=== PATIENT | male | born 1950 | race Caucasian/White ===

== ENCOUNTER → 2019-09-20 | Outpatient (CLI) | payer OTHER | LOC: M.LAB 10:16 | DX: Z20.828 Contact with and (suspected) exposure to other viral communicable diseases (principal) ==

== ENCOUNTER → 2019-10-09 | Outpatient (CLI) | payer OTHER, MEDICARE | LOC: M.CT 13:59 | DX: I25.10 Atherosclerotic heart disease of native coronary artery without angina pectoris (principal); J43.8 Other emphysema ==

== ENCOUNTER → 2019-10-15 | Outpatient (CLI) | payer OTHER, MEDICARE ==
--- NOTE | 2019-10-15 16:11 | 2DMMODE ---
[place] [address] 2 D/M-MODE ECHOCARDIOGRAM Name: JOSÉ CAMACHO MD Room: [facility]#: [id number] Admission: 10/15/19 Attend Phys: Deny Dorsey, Discharge: Date of : 54 Date of Service: 10/15/19 1609 Report #: [id number] THIS REPORT FOR: cc: Idris Claudio MD, William MD Holkins,Deon Shah MD [facility] ~ APPROVED REPORT Study performed: 10/15/2019 14:46:30 EXAM: Comprehensive 2D, Doppler, and color-flow Echocardiogram Patient Location: Out-Patient Status: routine BSA: 2.20 HR: 71 bpm Rhythm: NSR Other Information Study Quality: Good Indications Chest Pain 2D Dimensions IVSd: 12.00 (7-11mm) LVOT Diam: 19.90 (18-24mm) LVDd: 51.34 mm PWd: 9.92 (7-11mm) Ascending Ao: 33.98 (22-36mm) LVDs: 27.39 (25-40mm) Aortic Root: 43.81 mm Volumes Left Atrial Volume (Systole) LA ESV Index: 22.50 mL/m2 Aortic Valve AoV Peak Juan.: 1.10 m/s AO Peak Gr.: 4.82 mmHg LVOT Max P.34 mmHg AO Mean Gr.: 2.86 mmHg LVOT Mean P.21 mmHg LVOT Max V: 1.04 m/s AO V2 VTI: 20.29 cm LVOT Mean V: 0.69 m/s NEDA (VTI): 3.15 cm2 LVOT V1 VTI: 20.53 [place] [address] 2 D/M-MODE ECHOCARDIOGRAM Name: JOSÉ CAMACHO MD Room: [facility]#: [id number] Admission: 10/15/19 Attend Phys: Deny Dorsey, Discharge: Date of : 54 Date of Service: 10/15/19 1609 Report #: [id number] Mitral Valve E/A Ratio: 1.07 MV Decel. Time: 267.28 ms MV E Max Juan.: 0.51 m/s MV PHT: 77.51 ms MVA (PHT): 2.84 cm2 TDI E/Lateral E': 3.64 E/Medial E': 6.38 Medial E' Juan.: 0.08 m/s Lateral E' Juan.: 0.14 m/s Pulmonary Valve PV Peak Juan.: 0.82 m/s PV Peak Gr.: 2.68 mmHg Left Ventricle The left ventricle is normal size. There is normal LV segmental wall motion. There is normal left ventricular wall thickness. Left ventricular systolic function is normal. The left ventricular ejection fraction is within the normal range. LVEF is 60%. Grade I - abnormal relaxation pattern. Right Ventricle The right ventricle is normal size. The right ventricular systolic function is normal. Atria The left atrium size is normal. The right atrium size is normal. Aortic Valve Mild aortic valve sclerosis. Trace aortic regurgitation. There is no aortic valvular stenosis. Mitral Valve The mitral valve is normal in structure. Trace mitral regurgitation. No evidence of mitral valve stenosis. Tricuspid Valve The tricuspid valve is normal in structure. Unable to assess PA pressure. Trace tricuspid regurgitation. Pulmonic Valve The pulmonary valve is normal in structure. [place] [address] 2 D/M-MODE ECHOCARDIOGRAM Name: JOSÉ CAMACHO MD Room: [facility]#: [id number] Admission: 10/15/19 Attend Phys: Deny Dorsey, Discharge: Date of : 54 Date of Service: 10/15/19 1609 Report #: [id number] Great Vessels Aortic root is mildly dilated. IVC is normal in size and collapses >50% with inspiration. Pericardium There is no pericardial effusion. <Conclusion> The left ventricle is normal size. There is normal left ventricular wall thickness. Left ventricular systolic function is normal. The left ventricular ejection fraction is within the normal range. LVEF is 60%. Grade I - abnormal relaxation pattern. The right ventricle is normal size. Mild aortic valve sclerosis. Trace aortic regurgitation. There is no aortic valvular stenosis. The mitral valve is normal in structure. Trace mitral regurgitation. The tricuspid valve is normal in structure. Aortic root is mildly dilated. IVC is normal in size and collapses >50% with inspiration. There is no pericardial effusion. There is normal LV segmental wall motion. <ELECTRONICALLY SIGNED> By: Deon Adames MD, [facility] 10/15/19 1609 1609 [id number] Deon Adames MD, FACC /INF
== END ==
LOC: M.CRD 14:45
DX: I35.1 Nonrheumatic aortic (valve) insufficiency (principal); I25.10 Atherosclerotic heart disease of native coronary artery without angina pectoris

== ENCOUNTER → 2019-10-18 | Outpatient (CLI) | payer OTHER, MEDICARE ==
[2019-10-18 09:53] LABS: CHOLESTEROL 189 mg/dL (<200); HDL CHOLESTEROL 74 mg/dL (>40); TC:HDL 2.6 Ratio (Not establshd)
[2019-10-18 14:18] LABS: LDL CHOLESTEROL 105 mg/dL (<100); TRIGLYCERIDE 51 mg/dL (<150); VLDL 10 mg/dL (<40)
[2019-10-18 14:19] LABS: SERUM ASSESSMENT Clear
== END ==
LOC: M.CRD 10-14 10:16 → M.NUC 09:23
PROVIDERS: Internal Medicine Cardiovascular Disease
DX: I25.10 Atherosclerotic heart disease of native coronary artery without angina pectoris (principal); R07.2 Precordial pain

== ENCOUNTER → 2019-10-29 | Outpatient (CLI) | payer OTHER, MEDICARE ==
--- NOTE | 2019-10-29 16:33 | CARDNUC ---
[place] [address] CARDIAC NUCLEAR IMAGING REPORT Name: JOSÉ CAMACHO MD Room: [facility]#: [id number] Admission: 10/29/19 Attend Phys: Deny Dorsey, Discharge: Date of : 54 Date of Service: 10/29/19 1631 Report #: [id number] THIS REPORT FOR: cc: Idris Claudio MD, William MD Liston,Deny Terrell MD [facility] ~ APPROVED REPORT Imaging Protocol: Stress Tc-99m/Rest Tc-99m 2 days Study performed: 10/29/2019 09:30:00 Indication: Chest pain, dyspnea, increased calcium score. Patient Location: Out-Patient Stress Tech: Joanne Dhaliwal Stress Nurse: Cordelia Mathew RN Ht: 6 ft 0 in Wt: 215 lbs BSA: 2.20 m2 BMI: 29.15 Medical History Medical History: Angina, CAD non obstructive, HTN. Medications: Amlodipine, Olmesartan, ASA 81 Mg. Allergies: Naproxen, Ibuprofen. Cardiac Risk Factors: Age, HTN, Dyspnea, increase calcium score, chest discomfort. Previous Cardiac Procedures: None Pretest Chest Pain Characteristics: No chest pain Exercise History: Physically active Physical Disabilities: None noted. Meds Held (24 hrs): None Resting Data Rest SPECT myocardial perfusion imaging was performed in supine position 30 minutes following the intravenous injection of 10.5 mCi of Tc-99m Sestamibi. Time of rest injection: 09:55 The images were gated to evaluate regional wall motion and calculate left ventricular ejection fraction. Administration Route: IV Administration Site: Right Hand Exercise Stress At peak stress, the patient was injected intravenously with 34.3mCi of Tc-99[place] [address] CARDIAC NUCLEAR IMAGING REPORT Name: JOSÉ CAMACHO MD Room: [facility]#: [id number] Admission: 10/29/19 Attend Phys: Deny Dorsey, Discharge: Date of : 54 Date of Service: 10/29/19 1631 Report #: [id number] Time of stress injection: 11:45 Administration Route: IV Administration Site: Right Hand Heart Rate at time of stress injection: 154 bpm. Patient continued to exercise for 1 minute(s). Gated Stress SPECT was performed 30 minutes after stress injection. The images were gated to evaluate regional wall motion and calculate left ventricular ejection fraction. Prone imaging was performed. Stress Test Details Stress Test: Exercise stress testing was performed using a Liam protocol. HR Max Heart Rate (APMHR): 153 bpm Resting HR: 67 bpm Target HR (85% APMHR): 130 bpm Max HR Achieved: 154 bpm % of APMHR: 100 Recovery HR: 98 bpm HR response to stress: Normal HR response to stress BP Resting BP: 135/96 mmHg Max BP: 216/86 mmHg Recovery BP: 164/91 mmHg BP response to stress: Abnormal hypertensive response to stress. ECG Resting ECG: Sinus Rhythm Stress ECG: Sinus Tachycardia ST Change: None Arrhythmia: None Recovery ECG: Sinus Rhythm Recovery ST Change: None Recovery Arrhythmia: None Clinical Reason for Termination: Completed protocol, Maximal effort. Stress Symptoms: Left side underarm area ache - -/10. Exercise duration: 9 min 44 sec Exercise capacity: 11.36 METs Overall Exercise Capacity for Age: Superior. Patient exhibited good exercise tolerance on the standard Liam protocol. At peak exercise he did note some ache on the left side under his arm and his chest. [place] [address] CARDIAC NUCLEAR IMAGING REPORT Name: JOSÉ CAMACHO MD Room: [facility]#: [id number] Admission: 10/29/19 Attend Phys: Deny Dorsey, Discharge: Date of : 54 Date of Service: 10/29/19 1631 Report #: [id number] recovery. Nurse Comments A 69 year old male presented for a Liam Protocol Nuclear Stress test r/t increased calcium score, chest discomfort, dyspnea. Treadmill well tolerated to Stage 4. Recovery unremarkable. Patient was escorted by staff to Nuclear Medicine for imaging. Patient was stable and stated he felt good at that time. Exercise Capacity - Superior. Stress ECG Conclusion The baseline twelve-lead EKG shows sinus rhythm without significant ST segment or T wave abnormality. EKGs obtained during and post exercise show sinus rhythm and sinus tachycardia with no significant ST segment or T wave changes when compared to baseline. There were no stress-induced arrhythmias. Study Quality Study: Good Artifact: No artifact Study Data At rest, the left ventricular ejection fraction was 64%.. Post stress, the left ventricular ejection was 79%.. TID = 0.82. Perfusion Perfusion images obtained at rest and post exercise stress showed uniform uptake of the radioisotope throughout the myocardium without defect. Wall Motion Normal left ventricular wall motion. Nuclear Conclusion ECG Findings: negative for ischemia Clinical Findings: equivocal Nuclear Findings: negative for ischemia Exercise Capacity: normal Left Ventricular Function: normal Risk Study: low Perfusion study showed no defect to suggest infarct or ischemia. Left ventricular systolic function appears normal on gated studies. Stress EKG was unremarkable. This is a low risk study. <Conclusion> [place] [address] CARDIAC NUCLEAR IMAGING REPORT Name: JOSÉ CAMACHO MD Room: [facility]#: [id number] Admission: 10/29/19 Attend Phys: Deny Dorsey, Discharge: Date of : 54 Date of Service: 10/29/19 1631 Report #: [id number] The baseline twelve-lead EKG shows sinus rhythm without significant ST segment or T wave abnormality. EKGs obtained during and post exercise show sinus rhythm and sinus tachycardia with no significant ST segment or T wave changes when compared to baseline. There were no stress-induced arrhythmias. <ELECTRONICALLY SIGNED> By: Deny Dorsey MD, FACC 10/29/19 [id number] Deny Dorsey MD, FACC /INF
== END ==
LOC: M.NUC 09:36
DX: I25.10 Atherosclerotic heart disease of native coronary artery without angina pectoris (principal); R07.2 Precordial pain

== ENCOUNTER → 2020-10-15 | Outpatient (CLI) | payer OTHER | LOC: M.CT 08:43 | PROVIDERS: ATTEND Internal Medicine Cardiovascular Disease | DX: Z13.6 Encounter for screening for cardiovascular disorders (principal); I25.10 Atherosclerotic heart disease of native coronary artery without angina pectoris; E78.00 Pure hypercholesterolemia, unspecified ==

== ENCOUNTER → 2020-10-22 | Outpatient (CLI) | payer OTHER, MEDICARE | LOC: M.MRI 08:20 | PROVIDERS: ATTEND Internal Medicine | DX: M51.26 Other intervertebral disc displacement, lumbar region (principal); M48.062 Spinal stenosis, lumbar region with neurogenic claudication; G89.29 Other chronic pain ==

== ENCOUNTER → 2021-01-28 | Outpatient (CLI) | payer OTHER, MEDICARE | LOC: M.RAD 09:10 | PROVIDERS: ATTEND Internal Medicine | DX: M25.552 Pain in left hip (principal) ==